=== PATIENT | male | born 1985 | race Caucasian/White ===

== ENCOUNTER 2017-06-22 13:12 | Emergency (ER) | payer OTHER ==
[~2017-06-22] VITALS: Ht 185.4 cm; Wt 144.1 kg
[2017-06-22] MEDS ORDERED: MOTRIN800 MG PO (15:10)
[2017-06-22] MEDS ORDERED: PERCOCET 5/31 TABLET PO (15:19)
[2017-06-22 15:28] VITALS: BP 00/0
== END 2017-06-22 15:29 | disposition home or self-care (01) ==
LOC: EME 13:12
DX: I82.811 Embolism and thrombosis of superficial veins of right lower extremity (principal)
CPT/HCPCS: 93971; 99281; 99283